=== PATIENT | female | born 1945 | race Caucasian/White ===

== ENCOUNTER → 2021-12-14 10:51 | Outpatient (CLI) | payer MEDICARE, OTHER, SELFPAY ==
--- NOTE | 2021-12-14 10:53 | DI.RAD.S_ITS ---
PROCEDURE: XR FINGER LT MIN 2V INDICATIONS: pain to #5 finger TECHNIQUE: AP hand, 2 views of the 5th finger(s) acquired. COMPARISON: None. FINDINGS: Bones: No fractures or dislocations. No suspicious bony lesions. Generalized decrease in osseous mineralization noted. Soft tissues: No suspicious soft tissue calcifications. IMPRESSION: Generalized osteopenia without fracture or Approved by: Leonardo Brown M.D. on 12/14/2021 at 17:38
== END ==
PROVIDERS: Referring Provider Physician Assistant; Visit Provider Physician Assistant
DX: M85.842 Other specified disorders of bone density and structure, left hand (principal); M79.645 Pain in left finger(s)
CPT/HCPCS: 73140